=== PATIENT | female | born 2000 | race Caucasian/White ===

== ENCOUNTER 2020-03-23 10:09 | Emergency (ER) | payer MEDICAID ==
[~2020-03-23] VITALS: Ht 160 cm; Wt 89.4 kg
[2020-03-23 10:20] VITALS: BP 116/76
--- NOTE | 2020-03-23 10:23 | NUR ---
AT TENT. OF2.
--- NOTE | 2020-03-23 10:27 | NUR ---
19/F BIB SELF C/O COUGH X 1 WEEK, RIGHT BACK PAIN WHILE COUGHING X 2 DAYS. MED HX: DENIES. AT THIS TIME; PATIENT STATES PAIN OF 4/10 AT THIS TIME.
[2020-03-23 13:10] VITALS: BP 108/71
--- NOTE | 2020-03-23 13:10 | NUR ---
Patient discharged with v/s stable. Written and verbal after care instructions given and explained. Patient alert, oriented and verbalized understanding of instructions. Ambulatory with steady gait. All questions addressed prior to discharge. ID band removed. Patient advised to follow up with PMD. Rx of Ibuprofen and Prednisone given. Patient educated on indication of medication including possible reaction and side effects. Opportunity to ask questions provided and answered.
== END 2020-03-23 13:10 | disposition home or self-care (01) ==
LOC: MED 10:09
DX: R05 Cough (principal); M54.6 Pain in thoracic spine
CPT/HCPCS: 71045; 99283

== ENCOUNTER 2020-08-11 11:06 | Emergency (ER) | payer MEDICAID, SELFPAY ==
[~2020-08-11] VITALS: Ht 157.5 cm; Wt 86.2 kg
[2020-08-11 11:30] VITALS: BP 143/83
--- NOTE | 2020-08-11 11:40 | NUR ---
19/F C /O COUGH,SOB X 3 DAYS.PMH:DENIES.
--- NOTE | 2020-08-11 12:04 | NUR ---
Covid swab collected and walked to lab
--- NOTE | 2020-08-11 12:14 | NUR ---
Pt c/o cough x 2 days. States she was exposed to covid. Denies SOB/Chest pain. Awake and alert. VSS
[2020-08-11 13:13] VITALS: BP 143/83
--- NOTE | 2020-08-11 13:14 | NUR ---
Patient discharged with v/s stable. Written and verbal after care instructions given and explained. Patient alert, oriented and verbalized understanding of instructions. Ambulatory with steady gait. All questions addressed prior to discharge. ID band removed. Patient advised to follow up with PMD. Rx of PROMETHAZINE 6.25MG given. Patient educated on indication of medication including possible reaction and side effects. Opportunity to ask questions provided and answered.
== END 2020-08-11 13:14 | disposition home or self-care (01) ==
LOC: MED 11:06
DX: R05 Cough (principal); R09.89 Other specified symptoms and signs involving the circulatory and respiratory systems; Z20.828 Contact with and (suspected) exposure to other viral communicable diseases
CPT/HCPCS: 71045; 99284

== ENCOUNTER 2020-09-02 08:40 | Emergency (ER) | payer MEDICAID, SELFPAY ==
[~2020-09-02] VITALS: Ht 12.7 cm; Wt 1.4 kg
[2020-09-02 08:48] VITALS: BP 126/86
--- NOTE | 2020-09-02 08:53 | NUR ---
Patient being evaluated by DR BALES at TRIAGE ROOM.
[2020-09-02 10:03] LABS: BASOPHILS % (AUTO) 0.4 % (0.0-2.0); EOSINOPHILS % (AUTO) 0.1 % (0.0-4.0); HEMATOCRIT 43.8 % (36-48); LYMPHOCYTES # (AUTO) 1.7 K/uL (2.5-16.5); LYMPHOCYTES % (AUTO) 30.7 % (20.5-51.1); MEAN CORPUSCULAR HEMOGLOBIN 29 pg (27-31); MEAN CORPUSCULAR HGB CONC 34 g/dL (33-37); MEAN CORPUSCULAR VOLUME 83.8 fL (80-94); MONOCYTES # (AUTO) 0.7 K/uL (0.8-1.0); MONOCYTES % (AUTO) 13.7 % (1.7-9.3); NEUTROPHILS % (AUTO) 55.1 % (42.2-75.2); PLATELET COUNT (AUTO) 241 K/uL (140-450); RED BLOOD CELL COUNT(AUTO) 5.22 MIL/uL (4.20-5.40); RED CELL DISTRIBUTION WIDTH 13.6 % (11.6-13.7); WHITE BLOOD COUNT (AUTO) 5.4 K/uL (4.5-11.0)
[2020-09-02 10:04] LABS: APPEARANCE,URINE CLEAR (CLEAR); BLOOD, URINE NEGATIVE (NEGATIVE); COLOR,URINE YELLOW (YELLOW); LEUKOCYTE ESTERASE ,URINE NEGATIVE (NEGATIVE); NITRITE, URINE NEGATIVE (NEGATIVE); UGLUCOSE NEGATIVE (NEGATIVE)
[2020-09-02 10:40] LABS: ALBUMIN 3.8 g/dL (3.4-5.0); ANION GAP 16.2 (8-16); CARBON DIOXIDE 26.8 mmol/L (21-32); CREATININE 0.6 mg/dL (0.6-1.3); TOTAL BILIRUBIN 0.5 mg/dL (0.0-1.0)
[2020-09-02 10:44] LABS: BILIRUBIN,URINE NEGATIVE (NEGATIVE)
[2020-09-02] MEDS: ONDANSETRON 4 MG ODT PO ONE (12:11)
[2020-09-02] MEDS ORDERED: ONDANSETRON 4 MG TAB ONE (12:25)
--- NOTE | 2020-09-02 12:28 | NUR ---
ZOFRAN ODT 2ND DOSE. 1ST DOSE PT VOMITTED.
== END 2020-09-02 11:33 | disposition home or self-care (01) ==
LOC: MED 08:40
DX: R10.9 Unspecified abdominal pain (principal); R11.2 Nausea with vomiting, unspecified; R19.7 Diarrhea, unspecified; F12.90 Cannabis use, unspecified, uncomplicated
CPT/HCPCS: 36415; 74176; 80053; 81003; 81025; 83690; 85025; 99284; Q0162

== ENCOUNTER 2020-10-28 12:03 | Emergency (ER) | payer MEDICAID, OTHER, SELFPAY ==
[~2020-10-28] VITALS: Ht 160 cm; Wt 89.4 kg
[2020-10-28 12:08] VITALS: BP 131/83
--- NOTE | 2020-10-28 12:16 | NUR ---
PATIENT AMBULATED TO BED 8.
[2020-10-28] MEDS ORDERED: IBUPROFEN 400 MG TAB PO ONE (12:30)
[2020-10-28] MEDS ORDERED: ONDANSETRON 4 MG ODT PO ONE (12:30)
[2020-10-28 13:39] VITALS: BP 123/78
== END 2020-10-28 13:39 | disposition home or self-care (01) ==
LOC: MED 12:03
DX: M54.5 Low back pain (principal)
CPT/HCPCS: 72100; 99283; Q0162